=== PATIENT | female | born 1945 | race Caucasian/White ===

== ENCOUNTER 2017-04-01 13:04 | Outpatient (CLI) ==
[2014-04-02 14:04] VITALS: BMI 21.5
== END 2017-04-01 13:05 | disposition home or self-care (01) ==
LOC: RAD 13:04
PROVIDERS: ATTEND Internal Medicine
DX: Z12.31 Encounter for screening mammogram for malignant neoplasm of breast (principal)
CPT/HCPCS: 77067

== ENCOUNTER 2017-09-28 09:03 | Outpatient (CLI) | payer OTHER ==
[2014-04-02 14:04] VITALS: BMI 21.5
--- NOTE | 2017-09-28 10:23 | CT ---
EXAM:CT head with and without contrast HISTORY: Dizziness COMPARISON: None TECHNIQUE: Serial axial images of the brain were obtained from the skull base to the vertex with and without IV contrast. Contrast enhanced images were performed after 50 mL is of Omnipaque 300 IV cont rast was administered. FINDINGS: The ventricles, cisterns and sulci are normal. There is no abnormal contrast enhancing les ion.The nevarez-white matter junction is maintained. No midline shift or mass is identified. There is no intra or extra axial fluid collection. The paranasal sinuses and mastoid air cells are clear. The O sseous calvarium is intact. Limited evaluation of the arteries at the skull base are normal. IMPRESSION: No acute intracranial abnormality or contrast enhancing lesion.
--- NOTE | 2017-09-28 10:26 | CT ---
EXAM: CT cervical spine without contrast HISTORY: Neck pain COMPARISON: None TECHNIQUE: CT cervical spine performed without intravenous contrast. Coronal and sagittal reformatt ed images obtained. FINDINGS: Vertebral bodies normal height. No fracture. No subluxation. Reversal of the normal cer vical lordosis. Multilevel marginal osteophyte formation. Mild to moderate multilevel intervertebra l disc space narrowing. Multilevel facet and uncovertebral hypertrophy. Well marginated sclerotic fo cus right lateral mass C1, likely bone island. Prevertebral soft tissues appear normal. Biapical scar ring with nodularity. C2-C3: No central canal or neural foraminal narrowing. C3-C4: No central canal or neural foraminal narrowing. C4-C5: No central canal or neural foraminal narrowing. C5-C6: Posterior disc osteophyte complex and facet arthrosis causing mild central canal and mild to moderate bilateral neural foraminal narrowing. C6-C7: Posterior disc osteophyte complex and facet arthrosis causing mild central canal, mild right and left neural foraminal narrowing. C7-T1: No central canal or neural foraminal narrowing IMPRESSION: 1. No fracture or subluxation. 2. Chronic discogenic degenerative disease and facet arthrosis. Please see segmental analysis, noti ng central canal and neural foraminal narrowing. 3. Reversal of the normal cervical lordosis. 4. Biapical scarring with nodularity, likely fibrosis. Recommend CT chest follow-up in 6 months to ensure stability.
== END 2017-09-28 09:04 | disposition home or self-care (01) ==
LOC: RAD 09:03
PROVIDERS: ATTEND Internal Medicine
DX: R42 Dizziness and giddiness (principal); M54.2 Cervicalgia

== ENCOUNTER 2017-10-12 10:05 | Outpatient (CLI) ==
[2014-04-02 14:04] VITALS: BMI 21.5
--- NOTE | 2017-10-12 12:15 | CT ---
Exam: CT of the chest with intravenous contrast. Comparison: Chest x-ray performed 04/02/2014. CT cervical spine performed 09/28 eight pain Reason for exam: Abnormal CT of the cervical spine. FINDINGS: Biapical scarring/atelectasis in both lung apices. There is mild basilar atelectasis. De xtroscoliosis is seen in the thoracic spine. The aorta is normal in course and caliber. The heart is not enlarged. The thyroid appears grossly unremarkable. The gallbladder has been removed. There is thickening of the proximal gastric wall likely accentuated by non distension. Nodular densities adjacent to the spleen measuring up to 2 cm are presumably splenules. No suspicious appearing osteoblastic or osteolytic lesions. Operative changes are seen after implanted cardiac device placement. Mildly prominent mediastinal lymph node measuring 9 mm that does not meet radiographic size criteria for enlargement. Impression: 1. Mild apical scarring/atelectasis bilaterally. 2. No pneumothorax, pleural effusion, or focal consolidation. 3. Operative changes are seen after implanted intracardiac device placement. 4. Mildly prominent mediastinal lymph node measuring 9 mm that does not meet radiographic size crite tessa for enlargement
== END 2017-10-12 10:06 | disposition home or self-care (01) ==
LOC: RAD 10:05
PROVIDERS: ATTEND Internal Medicine
DX: R93.7 Abnormal findings on diagnostic imaging of other parts of musculoskeletal system (principal)

== ENCOUNTER 2018-02-01 06:57 | Outpatient (CLI) | payer OTHER ==
[2014-04-02 14:04] VITALS: BMI 21.5
== END 2018-02-01 06:58 | disposition home or self-care (01) ==
LOC: CAR 06:57
PROVIDERS: ATTEND Internal Medicine
DX: R06.02 Shortness of breath (principal)

== ENCOUNTER 2018-04-13 09:51 | Outpatient (CLI) | payer OTHER ==
[2014-04-02 14:04] VITALS: BMI 21.5
--- NOTE | 2018-04-14 09:12 | MAMMO ---
EXAM: Bilateral digital screening mammogram (2-D and 3-D) History: Screening Comparison: Bilateral mammogram 04/01/2017 Findings: MLO and CC views of bilateral breasts demonstrate scattered fibroglandular breast parenchy ma. CAD was reviewed by the radiologist. Tomosynthesis was performed. Stable benign bilateral von st calcifications. There are no dominant masses, no suspicious microcalcifications and no architectu ral distortions Impression: Benign stable mammogram. Recommend followup routine screening mammography in 1 year. BIRADS 2
== END 2018-04-13 09:52 | disposition home or self-care (01) ==
LOC: RAD 09:51
PROVIDERS: ATTEND Internal Medicine
DX: Z12.31 Encounter for screening mammogram for malignant neoplasm of breast (principal)